=== PATIENT | female | born 1995 | race Caucasian/White ===

== ENCOUNTER 2023-04-14 10:25 | Outpatient (AMB) | payer OTHER, SELFPAY ==
--- NOTE | 2023-04-14 11:46 | AM.OFFWIN_ITS ---
Intake Vital Signs 04/14/23 11:49 Height 5 ft Weight 200 lb BMI 39.1 BP 110/66 Blood Pressure Location Lt brachial Position Sitting Pulse 86 Pulse Source Pulse Oximeter Temp 97.5 F Temp Source Temporal Artery Scan Pulse Oximetry (%) 98 Oxygen Delivery Method Room Air Intake Visit Reasons: [employer] cough hurting chest nausea Intake Note: pt is here today for cough hurting chest nausea started yesterday Patient Tobacco Use Status: Never used Tobacco Allergies No Known Allergies Allergy (Verified 04/14/23 11:47) Do you need a note to return to daycare/school/sports/work: Yes HPI HPI Comments History of Present Illness Details 27 y/o female patient who presents to [facility] with c/o Cough since yesterday. PFSH Social History Patient Tobacco Use Status: Never used Tobacco Review of Systems Const All systems reviewed & are unremarkable except as noted in HPI and below Physical Exam Vital Signs: Last Vital Signs Temp 97.5 F 04/14/23 11:49 Pulse 86 04/14/23 11:49 BP 110/66 04/14/23 11:49 Pulse Ox 98 04/14/23 11:49 Oxygen Delivery Method Room Air 04/14/23 11:49 BMI result Body Mass Index 39.1 Const General: comfortable and no acute distress Nutritional Appearance: obese Orientation/consciousness: patient oriented x3 HEENT Head: Yes normocephalic Ears: external ears normal and TM's normal bilaterally General nose exam: Normal nasal mucous membranes and turbinates present Face and sinus: Yes sinuses nontender Mouth: moist mucous membranes Throat: Yes posterior oropharynx normal Resp Effort & Inspection: normal respiratory effort, able to speak in complete sentences and Actively coughing Auscultation: clear to auscultation bilaterally, no crackles, no rales, no rhonchi and no wheezes Cardio Rate: regular rate Rhythm: regular rhythm Neuro General: patient oriented x3 Assessment & Plan Assessment & Plan (1) Cough in adult: Code(s): R05.9 - Cough, unspecified Plan: - Acetaminophen for pain relief - OTC remedies Medications: New zyfdrrwrtpdtn-GT-twubqhgpvct 5-10-100 mg/5 mL (Adult Robitussin Peak Cold M-S) 10 mL PO Q4H PRN 237 mL 0RF cold symptoms R05.9 - Cough, unspecified benzonatate 100 mg PO TID 30 caps 0RF R05.9 - Cough, unspecified Coding Level of Care Code Est Pt Level 3 (57407) Diagnoses Cough in adult R05.9 Time Spent (min) 15
[2023-04-14 11:49] VITALS: BP 110/66; PULSE 86; TEMP 36.4; O2SAT 98; BMI 39.1
== END 2023-04-14 16:20 | disposition home or self-care (01) ==
PROVIDERS: Visit Provider Nurse Practitioner Family
DX: R05.9 Cough, unspecified (principal)
CPT/HCPCS: 99213

== ENCOUNTER 2023-11-14 11:48 | Outpatient (AMB) | payer OTHER, SELFPAY ==
--- NOTE | 2023-11-14 11:52 | AM.OFFWIN_ITS ---
Intake Vital Signs 11/14/23 11:56 Height 5 ft Weight 200 lb BMI 39.1 BP 108/70 Blood Pressure Location Rt brachial Position Sitting Pulse 83 Pulse Source Pulse Oximeter Temp 98.2 F Temp Source Oral Pulse Oximetry (%) 98 Oxygen Delivery Method Room Air Intake Visit Reasons: EP headache with nausea, sinus pressure Intake Note: Patient here for sinus pressure, headaches and nausea due to headaches that has been present for about 2 days. Patient Tobacco Use Status: Never used Tobacco Allergies No Known Allergies Allergy (Verified 11/14/23 11:56) Do you need a note to return to daycare/school/sports/work: Yes HPI HPI Comments History of Present Illness Details Patient is a 28-year-old female complaining of 2 days of headaches, sinus pressure, stuffy nose, ear blockage and a little bit of nausea which she attributes to the headaches. She states she gets sinus infections quite frequently and she is usually given antibiotics. She denies any cough, fevers, shortness of breath, vomiting or diarrhea. She says she took some ibuprofen which does not seem to be helping. She states she does take an allergy pill in the springtime and then usually in the fall. She states she has been using a Vicks nasal spray which seems to help for a little while but then stops working REPLACED BY [facility] Social History Patient Tobacco Use Status: Never used Tobacco Review of Systems Const All systems reviewed & are unremarkable except as noted in HPI and below Physical Exam Vital Signs: Last Vital Signs Temp 98.2 F 11/14/23 11:56 Pulse 83 11/14/23 11:56 BP 108/70 11/14/23 11:56 Pulse Ox 98 11/14/23 11:56 Oxygen Delivery Method Room Air 11/14/23 11:56 BMI result Body Mass Index 39.1 Const General: cooperative, healthy appearing, comfortable and no acute distress Orientation/consciousness: patient oriented x3 Limitations: no limitations HEENT Head: Yes normal to inspection Ears: hearing grossly normal bilaterally, external ears normal and TM's normal bilaterally General nose exam: Normal external nose present, Normal nares present and No nasal discharge present Face and sinus: Yes normal facial exam and Yes sinuses nontender Mouth: Normal oral and palatal mucosa present and moist mucous membranes Throat: Yes tonsils normal, Yes uvula midline and Yes posterior oropharynx abnormal (Erythema) Eyes General: appearance normal, both eyes and all related structures Neck Neck: Yes normal visual inspection Resp Effort & Inspection: normal respiratory effort, able to speak in complete sentences, no respiratory distress, not tachypneic, no tripod positioning and no use of accessory muscles Skin General skin exam: no rashes or lesions noted Neuro General: patient oriented x3 Extrem General: Yes normal to inspection and Yes no clubbing, cyanosis or edema Assessment & Plan Assessment & Plan (1) Sinusitis, acute ethmoidal: Code(s): J01.20 - Acute ethmoidal sinusitis, unspecified Qualifiers: Recurrence: non-recurrent Qualified Code(s): J01.20 - Acute ethmoidal sinusitis, unspecified Plan: Vital signs are stable, patient is well-appearing. Educated patient that sinus infections are generally viral in an antibiotic is not indicated. Did recommend she start using a Neti pot with distilled water, and and continuing to use nasal spray and educated her on how to use the nasal spray properly. We will send a steroid to the pharmacy for additional symptomatic relief. Plan See above Medications: New prednisone 20 mg PO DAILY 5 tabs 0RF Coding Level of Care Code New Pt Level 3 (40523) Diagnoses Acute non-recurrent ethmoidal sinusitis J01.20 Recurrence: non-recurrent
[2023-11-14 11:56] VITALS: BP 108/70; PULSE 83; TEMP 36.8; O2SAT 98; BMI 39.1
== END 2023-11-14 12:17 | disposition home or self-care (01) ==
PROVIDERS: Visit Provider Physician Assistant
DX: J01.20 Acute ethmoidal sinusitis, unspecified (principal)

== ENCOUNTER 2023-12-06 08:18 | Outpatient (REF) | payer OTHER, SELFPAY ==
[2023-12-06 10:08] LABS: MANUAL DIFF FLAG NO
[2023-12-06 10:15] LABS: Basophils Percent Auto 0.4 % (0-2); Eosinophils Absolute Auto 0.2 X10*3/uL (0.0-0.4); Eosinophils Percent Auto 1.8 % (0-4); Hematocrit 38.8 % (37.0-47.0); Hemoglobin 13.4 g/dl (12.0-16.0); Imm Gran Abs Auto 0.04 X10*3/uL (0.00-0.03); Imm Gran Pct Auto 0.5 % (0.0-0.4); Lymphocytes Absolute Auto 2.7 X10*3/uL (1.2-4.9); Lymphocytes Percent Auto 32.7 % (20-40); Mean Corpuscular HGB Conc 34.5 g/dl (31.0-35.0); Mean Corpuscular Hemoglobin 30.9 pg (27.0-33.0); Mean Corpuscular Volume 89.4 fL (80.0-98.0); Mean Platelet Volume 10.8 fL (9.4-12.3); Monocytes Absolute Auto 0.5 X10*3/uL (0.1-1.2); Monocytes Percent Auto 6.2 % (2-11); Neutrophils Absolute Auto 4.9 x10*3/uL (2.0-8.3); Neutrophils Percent Auto 58.4 % (45-73); Platelet Count 313 X10*3/uL (160-400); Red Blood Count 4.34 X10*6/uL (4.20-5.50); Red Cell Distribution Width 12.7 % (11.0-16.0); White Blood Count 8.3 X10*3/uL (4.8-10.8)
[2023-12-06 10:37] LABS: Estimated Average Glucose 100 mg/dL; Hemoglobin A1C 96.4628 umol/L; Hemoglobin A1c % 5.1 % (<6.0); Total Hemoglobin (HGBA1C) 2975.5998 umol/L
[2023-12-06 12:09] LABS: Alanine Aminotransferase 20 U/L (0-31); Albumin Level 4.3 g/dL (3.5-5.0); Alkaline Phosphatase 55 U/L (39-117); Anion Gap 12 (12-20); Aspartate Amino Transferase 23 U/L (5-31); Bilirubin Total 0.5 mg/dL (0.0-1.0); Blood Urea Nitrogen 15 mg/dL (9-16); Calcium 9.8 mg/dL (8.4-10.2); Carbon Dioxide 24 mmol/L (22-29); Chloride 108 mmol/L (96-108); Cholesterol 196 mg/dL (<200); Estimated Glomerular Filt Rate > 60; Glucose Random 92 mg/dL (60-115); HDL Cholesterol 47 mg/dL (>40); LDL Cholesterol Calculated 124 mg/dL (<100); Potassium 4.1 mmol/L (3.3-5.1); Sodium 140 mmol/L (135-145); Total Protein 7.3 g/dL (6.5-8.0); Triglycerides 128 mg/dL (<150)
[2023-12-06 12:10] LABS: HIV AB/AG Nonreactive (Nonreactive); HIV Num 1 0.04 S/CO (0.00-0.99); ~HepC Num1 0.08 S/CO (0.00-0.79); ~Hepatitis C Antibody Nonreactive (Nonreactive)
== END 2023-12-06 08:19 | disposition home or self-care (01) ==
LOC: HO.HMGCLDS 08:18
PROVIDERS: PCP Internal Medicine; Visit Provider Internal Medicine
DX: E66.812 Obesity, class 2 (principal); E66.09 Other obesity due to excess calories; Z68.39 Body mass index [BMI] 39.0-39.9, adult; Z13.1 Encounter for screening for diabetes mellitus
CPT/HCPCS: 36415; 80053; 80061; 83036; 84443; 85025; 86803; 87389

== ENCOUNTER 2024-03-21 13:46 | Outpatient (REF) | payer OTHER, SELFPAY ==
--- OUTSIDE RECORDS SUMMARY | 2024-03-21 14:12 | XMS_ITS | Clinical Summary ---
Author Organization [employer] Address [address] [place] [address] Care Team Providers Care Accounting Instructor Name Role Phone León Marie MD Primary Care Prov ider Allergies Active Allergy Reactions Criticality Noted Date Comments Apple Juice 12/05/2023 Octacosanol 06/28/2023 Medications amoxicillin (Amoxil) 875 MG tablet Take 875 mg by mouth 2 times daily. Active Sodium Fluoride (PreviDent 5000 Booster Plus) 1.1 % paste Please use pea size to brush your teeth twice daily. Spit after brushing. Do not rinse. 112 g 1 4 Active EPINEPHrine (Epipen) 0.3 MG/0.3ML injection syringe Inject 0.3 mL (0.3 mg) as directed 1 (one) time if needed for anaphylaxis for up to 1 dose. Inject into upper leg. Call 911 after use. 1 each 4 Active Active Problems Problem Noted Date Diagnosed Date Encounter for medical examination to establish c are 12/05/2023 Assessment & Plan (12/05/2023 6:05 PM EDT): Hospitalization:- Er visit in the past year: sinus infection/covid Pmhx:- PSHx:- All:apple Meds Zyrtec OTC Menarche 11yr LMP:11/03/2023 No hx of Sexually active with 1 male partner, not on contraceptives, not interested Due for a pap smear Dyshidrotic eczema 12/05/2023 Assessment & Plan (12/05/2023 6:06 PM EDT): Will refer to dermatology for evaluation Screening for cervical cancer 12/05/2023 Assessment & Plan (12/05/2023 6:07 PM EDT): Will refer for a pap smear Encounters Date Type Department Care Team Description 03/21/[address] [facility] [address] [place], [place] [phone] León Marie MD Nurse Triage from Last 3 Months Immunizations Name Administration Dates Next Due Tdap 12/05/2023 Family History Medical History Relation Name Comments Diabetes Father Hypertension Father Hypertension Maternal Grandfather Diabetes Maternal Grandmother Hypertension Maternal Grandmother Hypertension Mother Cancer Neg Hx Relation Name Status Comments Father Maternal Grandfather Maternal Grandmother Mother Social History Tobacco Use Types Packs/Day Years Used Date Smoking Tobacco: Never Passive Smoke Exposure: Never Smokeless Tobacco: Never Tobacco Cessation:Counseling Given: Not Answered Alcohol Use Standard Drinks/Week Comments Yes 3 (1 standard drink = 0.6 oz pure alcohol) mixed drinks once a months socially Alcohol Answer Date Recorded Frequency of Alcohol Consumption Not on file 12/05/2023 Average Number of Drinks Not on file 024 Frequency of Binge Drinking Not on file 11/14 Score 0 12/05/2023 Depression Answer Date Recorded Patient Health Questionnaire-9 Score 0 12/05/2023 Patient Health Questionnaire-9 Score 0 12/05/2023 Last PHQ-9: Questionnaire Data Not on file 1 Depression Answer Date Recorded Patient Health Questionnaire-2 Score 0 12/05/2023 Comments Unknown Sex and Gender Information Value Date Recorded Sex Assigned at Female 07/06/2022 4:11 PM EDT Legal Sex Female 4:09 PM EDT Gender Identity Female 07/06/2022 4:11 PM EDT Sexual Orientation Straight 07/06/2022 4: 11 PM EDT Last Filed Vital Signs Vital Sign Reading Time Taken Comments Blood Pressure 134/82 12/05/2023 9:58 AM EDT Pulse 88 12/05/2023 9:58 AM EDT Temperature 36.6 ??C (97.8 ??F) 12/05/2023 9:58 AM ED T Respiratory Rate 20 12/05/2023 9:58 AM EDT Oxygen Saturation - - Inhaled Oxygen Concentration - - Weight 92.1 kg (203 lb) 12/05/2023 9:58 AM EDT Height 152.4 cm (5') 12/05/2023 9:58 AM EDT Body Mass Index 39.65 12/05/2023 9:58 AM EDT Plan of Treatment Health Maintenance Due Date Last Done Comments SDOH Screening 1994 Family Planning (PISQ) 2009 Hepatitis B Vaccines (1 of 3 - 19+ 3-dose series) 2013 Pap Smear 09/13/2015 Dental Oral Exam 06/22/2023 12/21/2022 COVID-19 Vaccine (1 - 2023-2 5 season) 2023 Influenza Vaccine (#1) 2023 Dental Prophylaxis 12/30/2023 06/28/2023, 07/28/2022 Dental X-Ray: Bitewings 06/28/2024 06/28/19 24, 12/21/2022, 07/14/2022 Alcohol/Substance Use Screening 12/04/2024 12/05/2023 Depression Screening 12/04/2024 12/05/2023, 12/05/2023 Tobacco Screening 12/04/2024 12/05/2023 Dental X-Ray: Full Mouth 07/15/2025 023, 07/14/2022 Lipid Panel 12/05/2028 12/06/2023 DTaP/Tdap/Td Vaccines (2 - T d or Tdap) 12/04/2033 12/05/2023 Zoster Vaccines (1 of 2) 2044 RSV Patients and Patients Aged 60 years or older (1 - 1-dose 75+ series) 2069 HIV Screening Completed 12/06/2023 Hepatitis C Screening Completed 12/06/2023 HIB Vaccines Aged Out No longer eligi ble based on patient's age to complete this topic HPV Vaccines Aged Out No longer eligi ble based on patient's age to complete this topic Hepatitis A Vaccines Aged Out No long er eligible based on patient's age to complete this topic IPV Vaccines Aged Out No longer eligi ble based on patient's age to complete this topic Meningococcal Vaccine Aged Out No john kim eligible based on patient's age to complete this topic Pneumococcal Vaccine: Pediatrics (0 to 5 Years) and At-Risk Patients (6 to 49) Years) Aged Out No longer eligible b ased on patient's age to complete this topic RSV under 20 months Aged Out No longe r eligible based on patient's age to complete this topic Rotavirus Vaccines Aged Out No longer eligible based on patient's age to complete this topic Procedures Procedure Name Priority Date/Time Associated Diagnosis Comments HEPATITIS C AB W/REFL TO HCV RNA, QN, PCR Routine 12/06/2023 8:24 AM EDT Class 2 obesity due to excess calories without serious comorbidity with body mass index (BMI) of 39.0 to 39.9 in adult HIV 1/2 ANTIGEN/ANTIBODY, FOURTH GENERATION W/RFL Routine 12/06/2023 8:24 AM EDT Class 2 obesity due to excess calories without serious comorbidity with body mass index (BMI) of 39.0 to 39.9 in adult LIPID PANEL, STANDARD Routine 12/06/2023 8:24 AM EDT Class 2 obesity due to excess calories without serious comorbidity with body mass index (BMI) of 39.0 to 39.9 in adult Full PROPHYLAXIS - ADULT Routine 06/28/2023 8:00 AM EDT BITEWINGS - 4 RADIOGRAPHIC IMAGES Routine 06/28/2023 8:00 AM EDT PERIODIC ORAL EVALUATION - ESTABLISHED PATIENT Routine 12/21/2022 1:30 PM EST DIAGNOSTIC - DIAGNOSTIC IMAGING - INTRAORAL - COMPREHENSIVE SERIES OF RADIOGRAPHIC IMAGES Routine 07/14/2022 3:00 PM EDT from Last 3 Months or Most Recently Relevant to Health Maintenance Results * Hepatitis C Antibody with Reflex to HCV, RNA, Quantitative, Real-Time PCR (12/06/2023 8:24 AM EDT) Hepatitis C Antibody Nonreactive Nonreactive [facility] Comment:Antibodies to HCV no t detected; does not exclude early acuteHCV infection. Blood Venous blood specimen / Unknown 12/06/2023 8:24 AM EDT 12/06/2023 10:07 AM EDT us León Sarmiento MD LAB BLOOD ORDERABL ES Final Result [facility] [address] [place] [address] [place] [phone] * HIV-1/2 Antigen and Antibodies, Fourth Generation, with Reflexes (12/06/2023 8:24 AM EDT) HIV AB/AG Nonreactive Nonreactive [facility] Comment:HIV-1 p24 Ag and/or HIV-1/HIV-2 Ab not detected.A test result that is nonreactive does not exclude thepossibility of exposure to or infection with HIV-1 and/orHIV-2. Nonreactive results in this assay for individualswith prior exposure to HIV-1 and/or HIV-2 may be due toantigen and antibody levels that are below the limit ofdetection of this assay.The [employer] HIV Ag/Ab Combo assay result andsupplemental assay results should be interpreted inconjunction with the patient's clinical presentation,history and other laboratory results. If the results areinconsistent with clinical evidence, additional testing issuggested to confirm the result. Blood Venous blood specimen / Unknown 12/06/2023 8:24 AM EDT 12/06/2023 10:07 AM EDT us León Sarmiento MD LAB BLOOD ORDERABL ES Final Result [facility] [address] [place] [phone] * (ABNORMAL) Lipid Panel, Standard (12/06/2023 8:24 AM EDT) Triglycerides 128 <150 mg/dL [facility] Comment:Desirable Triglyceri de: less than 150 mg/dLBorderline High Triglyceride 150-199 mg/dLHigh Triglyceride: 200-499 mg/dLVery High Triglyceride: greater than or equal to 5OO mg/dL Cholesterol 196 <200 mg/dL [facility] Comment:Desirable Cholestero l: less than 200 mg/dLBorderline High Cholesterol: 200-239 mg/dLHigh Cholesterol: greater than 239 mg/dL LDL Cholesterol Calculated 124(H) <100 mg/dL [facility] Comment:Desirable LDL: less than 100 mg/dLNear Optimal/Above Optimal LDL: 110- 129 mg/dLBorderline High LDL: 130-159 mg/dLHigh LDL: 160-189 mg/dLVery High LDL: greater than or equal to 190 mg/dL HDL Cholesterol 47 >40 mg/dL [facility] Comment:Desirable HDL: great er than 40 mg/dL Note: This HDL assay may give artificially low results in patients with liver disease. Blood Venous blood specimen / Unknown 12/06/2023 8:24 AM EDT 12/06/2023 10:07 AM EDT León Sarmiento MD LAB BLOOD ORDERABL ES Final Result Performing Organization Address City/State/[facility] Co de Phone Number [facility] [address] [place] [phone] from Last 3 Months or Most Recently Relevant to Health Maintenance Insurance [facility] MEDICAID STAND ADULT [facility] CHOICE [place] [id number] [facility] STAND AD[place] [facility] [place] [facility] [facility] Care Teams Accounting Instructor Relationship Specialty Start Date End Date León Marie MD [address] [place] [address] [place] [id number] PCP - General Internal Medicine 12/05/23
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
--- OUTSIDE RECORDS SUMMARY | 2024-03-21 14:12 | XMS_ITS | Encounter Summary ---
Author Organization [employer] Address [address] [place] [address] Care Team Providers Care Senior Cost Accountant Name Role Phone León Marie MD Primary Care Prov ider Reason for Visit * Reason Onset Date Comments Nurse Triage 03/21/2024 Encounter Details Date Type Department Care Team (Late st Contact Info) Description 03/21/2024 Telephone [facility] [address] [place] [address] León Marie MD [address] [place], [place] [id number] Nurse Triage Social History Tobacco Use Types Packs/Day Years Used Date Smoking Tobacco: Never Passive Smoke Exposure: Never Smokeless Tobacco: Never Alcohol Use Standard Drinks/Week Comments Yes 3 [...] Orientation Straight 07/06/2022 4: 11 PM EDT documented as of this encounter Miscellaneous Notes * Telephone Encounter - Sylvia Ayers RN - 03/21/2024 1:24 PM EST Second attempt Call returned to [facility] to triage below. Reports having cough and associatedCP. Sx onset last night. Pt reports cough is productive with sputum. Pt endorses having runny nose and fatigue. Denies any ST, VARGAS or ear pain. No homekit for COVID-19. Pt alert, speaking in clear full sentences. Pt advised of disposition, agrees to seek [facility] in [place] as no [facility]. Protocol Used: COVID-19 - Diagnosed or Suspected (Adult) Protocol-Based Disposition: Go to ED/UCC Now (or to Office with PCP Approval) Video visit offer not recorded Positive Triage Question: * Chest pain or pressure (Exception: Mild central chest pain, present only when coughing.) * All higher-acuity triage questions were negative Care Advice Discussed: * Reassurance and Education - Suspected COVID-19 and Testing Needed * Cough Medicines * Humidifier * Coughing Spells * Pain and Fever Medicines * Reasons To Call Back - Fever over 103 F (39.4 C) - Chest pain or difficulty breathing occurs - You become worse * Telephone Encounter - Sylvia Ayers RN - 03/21/2024 1:14 PM EST Call returned to [facility] for triage below. No answer LVM to return call to [facility] triage line [phone]. Insurance verified as active per [employer] [facility] Eligibility in [facility]. * Telephone Encounter - Alex Joaquin - 03/21/2024 1:09 PM EST Symptoms: Chest Pain - Adult, Cough Outcome: Transfer to a nurse or provider NOW! Reason: Hard to wake up Please contact pt at [phone]. documented in this encounter Plan of Treatment Not on file documented as of this encounter Visit Diagnoses Not on filedocumented in this encounter Additional Health Concerns Assessment Noted Time PHQ-9 Depression Total Score: 0 12/05/19 9:59 AM EDT documented as of this encounter Care Teams Senior Cost Accountant Relationship Specialty Start Date End Date León Marie MD [address] [place] [address] PCP - General Internal Medicine 12/05/23 documented as of this encounter
--- OUTSIDE RECORDS SUMMARY | 2024-03-21 14:12 | XMS_ITS | Encounter Summary ---
Author Organization [employer] Address [address] [place] [address] [address] [place] [address] Care Team Providers Care Host And Hostess Name Role Phone León Marie MD Primary Care Prov ider Reason for Visit * Reason Onset Date Comments toothpaste script 09/21/2022 Encounter Details Date Type Department Care Team ([facility] st Contact Info) Description 09/21/2022 Telephone [facility] [address] [facility] [place] [address] Yeni Paulino BDMello toothpaste script Social History Tobacco Use Types Packs/Day Years Used Date Smoking Tobacco: Never Passive Smoke Exposure: Never Smokeless Tobacco: Never Alcohol Use Standard Drinks/Week Comments Yes 3 (1 standard drink = 0.6 oz pur e alcohol) Comments Unknown Sex and Gender Information Value Date Recorded Sex Assigned at Female 07/06/2022 4:11 PM EDT Legal Sex Female 4:09 PM EDT Gender Identity Female 07/06/2022 4:11 PM EDT Sexual Orientation Straight 07/06/2022 4: 11 PM EDT documented as of this encounter Miscellaneous Notes * Telephone Encounter - Geneva Radford - 09/21/2022 3:35 PM EDT Patient called back saying she is waiting for the script for toothpaste to be sent to the pharmacy documented in this encounter Plan of Treatment Not on file documented as of this encounter Visit Diagnoses Not on filedocumented in this encounter Care Teams Host And Hostess Relationship Specialty Start Date End Date León Marie MD [address] [place] [address] PCP - General Internal Medicine 12/05/23 documented as of this encounter
--- OUTSIDE RECORDS SUMMARY | 2024-03-21 14:12 | XMS_ITS | Encounter Summary ---
Author Organization [employer] Address [address] [place] [address] 7t [place] [address] Care Team Providers Care Machine Iii Coremaker Name Role Phone León Marie MD Primary Care Prov ider Reason for Visit * Reason Onset Date Comments script not sent 07/21/2022 Encounter Details Date Type Department Care Team ([facility] st Contact Info) Description 07/21/2022 Telephone [facility] [address] [facility] [address] Yeni Paulino BDS script not sent Social History Tobacco Use Types Packs/Day Years Used Date Smoking Tobacco: Never Assessed Comments Unknown Sex and Gender Information Value Date Recorded Sex Assigned at Female 07/06/2022 4:11 PM EDT Legal Sex Female 4:09 PM EDT Gender Identity Female 07/06/2022 4:11 PM EDT Sexual Orientation Straight 07/06/2022 4: 11 PM EDT COVID-19 Exposure Response Date Recorded In the last 10 days, have yo u been in contact with someone who was confirmed or suspected to have Coronavirus/COVID-19? No / Unsure 07/14/2022 2:57 PM EDT documented as of this encounter Miscellaneous Notes * Telephone Encounter - Geneva Radford - 07/21/2022 4:09 PM EDT Patient called in to report that script from visit on 07/14 was not sent to pharmacy. Can script besent to pharmacy. DR documented in this encounter Plan of Treatment Not on file documented as of this encounter Visit Diagnoses Not on filedocumented in this encounter Care Teams Machine Iii Coremaker Relationship Specialty Start Date End Date León Marie MD [address] [place] [id number] PCP - General Internal Medicine 12/05/23 documented as of this encounter
[2024-03-21 16:55] LABS: Influenza A PCR POSITIVE (Negative); Influenza B PCR NEGATIVE (Negative); Resp Syncy Virus RNA Qual PCR NEGATIVE (Negative); SARS COV2 PCR INHOUSE NEGATIVE (Negative)
== END 2024-03-21 13:47 | disposition home or self-care (01) ==
LOC: HO.LAB 13:46
PROVIDERS: PCP Internal Medicine; Visit Provider Nurse Practitioner Family
DX: J06.9 Acute upper respiratory infection, unspecified (principal)
CPT/HCPCS: 0241U

== ENCOUNTER 2024-10-26 09:32 | Outpatient (AMB) | payer OTHER, SELFPAY ==
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
--- OUTSIDE RECORDS SUMMARY | 2024-10-26 09:35 | XMS_ITS | Encounter Summary ---
Author Organization [employer] Address [address] [facility] [address] [place] [address] Care Team Providers Care Construction Laborer Name Role Phone León Marie MD Primary Care Prov ider Reason for Visit * Reason Onset Date Comments Nurse Triage 03/25/2024 Encounter Details Date Type Department Care Team (Late st Contact Info) Description 03/25/2024 Telephone [facility] MEDICINE [address] [place] [address] León Marie MD [address] [place], [place] [phone] Nurse Triage Social History Tobacco Use Types Packs/Day Years Used Date Smoking Tobacco: Never Passive Smoke Exposure: Never Smokeless Tobacco: Never Alcohol Use Standard Drinks/Week Comments Yes 3 (1 standard drink = 0.6 oz pure alcohol) mixed drinks once a months socially Depression Answer Date Recorded Patient Health Questionnaire-9 [...] encounter Miscellaneous Notes * Telephone Encounter - Maday Sanches RN - 03/25/2024 9:38 AM EST Triage call Pt reports headache, bilateral earache and congestion, nasal congestion, cough. Pt was seen in Urgent Care 03/21/24 (report is on the chart) and dx with Flu A, tamiflu was started then. Pt reports pain over facial sinuses, ears are very clogged and headache has continued to become worse. Pt reports nasal drainage from clear to yellow-green. Pt is taking tylenol 1000mg q 6hrs without relief. Pt reports warm compress to facial area helps relieve discomfort. Pt is encouraged to increase liquids , marco a warm decaf tea, broth to 6-8 glasses daily and Pt agrees. ASK apt with Dr. Pederson today at 1130am. Pt agrees with disposition and is needing an excuse for absence from work. Insurance is verified as active prior to booking. Protocol Used: Sinus Pain or Congestion (Adult) Protocol-Based Disposition: See in Office or Video Visit Today or Tomorrow Video visit not offered Positive Triage Questions: * Lots of coughing * Patient wants to be seen * All higher-acuity triage questions were negative Care Advice Discussed: * Reassurance and Education - Colds and Sinus Congestion * Hydration * Reasons To Call Back - Severe pain lasts over 2 hours after pain medicine - Sinus pain lasts over 1 day after using nasal washes - Sinus congestion (fullness) lasts over 10 days - Fever lasts over 3 days - You become worse * Telephone Encounter - Shama Roque - 03/25/2024 9:04 AM EST Symptoms: Headache, Earache Outcome: Schedule an urgent appointment (within 1 hour) or talk to a nurse or provider soon Reason: Severe pain now The caller accepted this outcome. documented in this encounter Plan of Treatment Not on file documented as of this encounter Visit Diagnoses Not on filedocumented in this encounter Additional Health Concerns Assessment Noted Time PHQ-9 Depression Total Score: 0 12/05/19 9:59 AM EDT documented as of this encounter Care Teams Construction Laborer Relationship Specialty Start Date End Date León Marie MD [address] [place] [address] PCP - General Internal Medicine 12/05/23 documented as of this encounter
--- OUTSIDE RECORDS SUMMARY | 2024-10-26 09:35 | XMS_ITS | Encounter Summary ---
Author Organization [employer] Address [address] [place] [address] 7 [place] [address] Care Team Providers Care Chemical Plant Operator Supervisor Name Role Phone León Marie MD Primary Care Prov ider Reason for Visit * Reason Onset Date Comments toothpaste script 09/21/2022 Encounter Details Date Type Department Care Team ([facility] st Contact Info) Description 09/21/2022 Telephone C [facility] ADULT DENTAL [address] [facility] [place] [address] Yeni Paulino BDMello toothpaste script Social History [...] on filedocumented in this encounter Care Teams Chemical Plant Operator Supervisor Relationship Specialty Start Date End Date León Marie MD [address] [place] [address] PCP - General Internal Medicine 12/05/23 documented as of this encounter
--- OUTSIDE RECORDS SUMMARY | 2024-10-26 09:35 | XMS_ITS | Encounter Summary ---
Author Organization [employer] Address [address] [facility] [address] 7[address] [place] [address] Care Team Providers Care Director Workforce Management Name Role Phone León Marie MD Primary Care Prov ider Reason for Visit * Reason Onset Date Comments Nurse Triage 10/25/2024 Encounter Details Date Type Department Care Team (Late st Contact Info) Description 10/25/2024 Telephone [facility] MEDICINE [address] [place] [address] León Marie MD [address] [place], [place] [phone] Nurse Triage Social History Tobacco Use Types [...] Telephone Encounter - Sylvia Ayers RN - 10/25/2024 9:37 AM EDT Call returned to Addie Campo to triage below at [phone]. Endorses having right sided VARGAS andbehind hear x Monday. No cough, congestion, runny nose or ST. Denies any fever. Pt has used sudafedand ibuprofen. No new meds. Pt denies any hx of migraines. Mild nausea. Denies any sensitivity to light or sound. Pt advised of disposition, agrees to seek [facility] for exam as no sick on site availability on teams at time of call. Reviewed [facility] operating hours and that wait times vary. Reviewed home care advise, ER precautions and reasons to call back. Protocol Used: Headache (Adult) Protocol-Based Disposition: Callback or Video Visit by PCP within 1 Hour Positive Triage Question: * Severe headache and not relieved by pain meds * All higher-acuity triage questions were negative Care Advice Discussed: * Reassurance and Education - Migraine Headache * Pain Medicines * Rest for Migraine Headache * Cold Pack for Headache * Reasons To Call Back - Severe headache lasts over 2 hours after pain medicine - You become worse * Telephone Encounter - Sylvia Ayers RN - 10/25/2024 9:03 AM EDT Call returned to Addie Campo at [phone] for triage below. No answer LVM to return call to [facility] triage line [phone]. m * Telephone Encounter - Nellie Jj - 10/25/2024 8:36 AM EDT Symptoms: Headache, Nausea But No Vomiting, Dizziness Outcome: Transfer to a nurse or provider NOW! Reason: Sudden worst headache of life now The caller accepted this outcome. Contact pt at [phone] documented in this encounter Plan of Treatment Not on file documented as of this encounter Visit Diagnoses Not on filedocumented in this encounter Additional Health Concerns Assessment Noted Time PHQ-9 Depression Total Score: 0 12/05/19 24 9:59 AM EDT documented as of this encounter Care Teams Director Workforce Management Relationship Specialty Start Date End Date PedersonLeón Carpenter MD [address] [place] [id number] PCP - General Internal Medicine 12/05/23 documented as of this encounter
--- OUTSIDE RECORDS SUMMARY | 2024-10-26 09:35 | XMS_ITS | Encounter Summary ---
Author Organization [employer] Address [address] [facility] 7t [place] [address] Care Team Providers Care Beauty Operator Apprentice Name Role Phone León Marie MD Primary Care Prov ider Reason for Visit * Reason Onset Date Comments Nurse Triage 06/05/2024 Encounter Details Date Type Department Care Team (Late st Contact Info) Description 06/05/2024 Telephone [facility] MEDICINE [address] [place] [address] León Marie MD [address] [place], [place] [phone] Nurse Triage Social History Tobacco Use Types [...] Telephone Encounter - Maday Sanches RN - 06/05/2024 9:26 AM EDT Triage call Pt reports sore throat, sinus sx and bilateral earaches since the weekend. Denies fever. Pt reports difficulty swallowing. 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 No apts available today in [facility] and Pt is offered to come to [facility] today but, declines. ASK apt in [facility] @ 900am. Pt agrees with disposition. Pt is advised to drink liquids especially warm liquids, soft foods, salt water gargle and Pt agrees. Insurance is verified as active prior to booking. Protocol Used: Sore Throat (Adult) Protocol-Based Disposition: Strep Test Only Visit Today or Tomorrow Video visit not offered Positive Triage Question: * Strep exposure within last 10 days * All higher-acuity triage questions were negative Care Advice Discussed: * Reassurance and Education - Sore Throat * Sore Throat * Soft Diet * Drink Plenty of Liquids * Reasons To Call Back - Sore throat is the main symptom and it lasts longer than 48 hours - Sore throat is mild but lasts longer than 4 days - Fever lasts longer than 3 days - You become worse * Telephone Encounter - Cara [place] - 06/05/2024 8:51 AM EDT Symptoms: Sore Throat, Sinus Symptoms Outcome: Schedule an appointment to be seen within 24 hours Reason: Caller denied all higher acuity questions The caller accepted this outcome. [phone] documented in this encounter Plan of Treatment Not on file documented as of this encounter Visit Diagnoses Not on filedocumented in this encounter Additional Health Concerns Assessment Noted Time PHQ-9 Depression Total Score: 0 12/05/19 9:59 AM EDT documented as of this encounter Care Teams Beauty Operator Apprentice Relationship Specialty Start Date End Date León Marie MD [address] [place] [id number] PCP - General Internal Medicine 12/05/23 documented as of this encounter
--- OUTSIDE RECORDS SUMMARY | 2024-10-26 09:35 | XMS_ITS | Encounter Summary ---
Author Organization [employer] Address [address] [place] [address] 7t [place] [address] Care Team Providers Care Spirits Model Name Role Phone León Marie MD Primary Care Prov ider Reason for Visit * Reason Onset Date Comments script not sent 07/21/2022 Encounter Details Date Type Department Care Team ([facility] st Contact Info) Description 07/21/2022 Telephone [facility] [address] [facility] [place] [address] Yeni Paulino BDS script not sent Social [...] on filedocumented in this encounter Care Teams Spirits Model Relationship Specialty Start Date End Date León Marie MD [address] [place] [id number] PCP - General Internal Medicine 12/05/23 documented as of this encounter
--- OUTSIDE RECORDS SUMMARY | 2024-10-26 09:35 | XMS_ITS | Clinical Summary ---
Author Organization [employer] Address [address] [facility] 7t [place] [address] Care Team Providers Care Senior Net Software Developer Name Role Phone León Marie MD Primary [...] 911 after use. 1 each 4 Active azelastine (Astelin) 0.1 % nasal spray Administer 1 spray into each nostril 2 times daily. Use in each nostril as directed 30 mL 12 5 06/07/19 26 Active loratadine (Claritin) 10 MG tablet Take 1 tablet (10 mg) by mouth Once per day. 30 tablet 11 5 06/07/19 26 Active Active Problems Problem Noted Date Diagnosed [...] Encounters Date Type Department Care Team Description 10/25/2024 Telephone [facility] [address] [place] [address] León Marie MD Nurse Triage from Last 3 Months Immunizations Immunization Administration Dates Next Due Tdap 12/05/2023 Family [...] Sign Reading Time Taken Comments Blood Pressure 120/72 06/06/2024 8:58 AM EDT Pulse 82 06/06/2024 8:58 AM EDT Temperature 37 C (98.6 F) 06/06/2024 8:58 AM EDT Respiratory Rate 20 06/06/2024 8:58 AM EDT Oxygen Saturation 98% 06/06/2024 8:58 AM EDT Inhaled Oxygen Concentration - - Weight 91.4 kg (201 lb 6.4 oz) 06/06/2024 8:58 A M EDT Height 154.9 cm (5' 1 ) 06/06/2024 8:58 AM EDT Body Mass Index 38.05 06/06/2024 8:58 AM EDT Plan of Treatment Health Maintenance Due Date Last Done Comments SDOH Screening 1994 Disability Screening 1994 Family Planning (PISQ) 2009 HPV Vaccines (1 - 3-dose series) 2009 Hepatitis B Vaccines (1 of 3 - 19+ 3-dose series) 2013 Pap Smear 09/13/2015 Dental Oral Exam 06/22/2023 12/21/2022 Dental Prophylaxis 12/30/2023 06/28/2023, 07/28/2022 Dental X-Ray: Bitewings 06/28/2024 06/28/19 24, 12/21/2022, 07/14/2022 Cervical Cancer Screening 2024 HPV/Cotest 2024 COVID-19 Vaccine (1 - 2023-2 5 season) 2024 Influenza Vaccine (#1) 2024 Alcohol/Substance Use Screening 12/04/2024 12/05/2023 Depression Screening [...] patient's age to complete this topic Meningococcal B Vaccine Aged Out No l onger eligible based on patient's age to complete this topic Meningococcal Vaccine Aged Out No john kim eligible based on patient's age to complete this topic Pneumococcal Vaccine: Pediatrics (0 to 5 Years) and At-Risk Patients (6 to 49) Years Aged Out No longer eligible b ased [...] ESTABLISHED PATIENT Routine 12/21/2022 1:30 PM EST INTRAORAL - COMPLETE SERIES OF RADIOGRAPHIC IMAGES Routine 07/14/2022 3:00 PM EDT from Last 3 Months or Most Recently Relevant to Health Maintenance Results * Hepatitis C Antibody with Reflex to HCV, RNA, Quantitative, Real-Time PCR (12/06/2023 8:24 AM EDT) Hepatitis C Antibody Nonreactive Nonreactive [facility] Comment:Antibodies to HCV no t detected; does not exclude early acuteHCV infection. Blood Venous blood specimen / Unknown 12/06/2023 8:24 AM EDT 12/06/2023 10:07 AM EDT León Sarmiento MD LAB BLOOD ORDERABL ES Final Result Performing Organization Address [facility]/ZIP Co de Phone Number [facility] [address] [place] [address] [phone] * HIV-1/2 Antigen and Antibodies, Fourth Generation, with Reflexes (12/06/2023 8:24 AM EDT) HIV AB/AG Nonreactive Nonreactive [facility] Comment:HIV-1 p24 Ag and/or HIV-1/HIV-2 Ab not detected.A test result that is nonreactive does not exclude thepossibility of exposure to or infection with HIV-1 and/orHIV-2. Nonreactive results in this assay for individualswith prior exposure to HIV-1 and/or HIV-2 may be due toantigen and antibody levels that are below the limit ofdetection of this assay.The [employer] HIV Ag/Ab Combo assay result andsupplemental assay results should be interpreted inconjunction with the patient's clinical presentation,history and other laboratory results. If the results areinconsistent with clinical evidence, additional testing issuggested to confirm the result. Blood Venous blood specimen / Unknown 12/06/2023 8:24 AM EDT 12/06/2023 10:07 AM EDT León Sarmiento MD LAB BLOOD ORDERABL ES Final Result Performing Organization Address City/[facility]/ZIP Co de Phone Number [facility] [address] [place] [address] [phone] * (ABNORMAL) Lipid Panel, Standard (12/06/2023 8:24 AM EDT) Triglycerides 128 <150 mg/dL [facility] Comment:Desirable Triglyceri de: less than 150 mg/dLBorderline High Triglyceride 150-199 mg/dLHigh Triglyceride: 200-499 mg/dLVery High Triglyceride: greater than or equal to 5OO mg/dL Cholesterol 196 <200 mg/dL [facility] Comment:Desirable Cholestero l: less than 200 mg/dLBorderline High Cholesterol: 200-239 mg/dLHigh Cholesterol: greater than 239 mg/dL LDL Cholesterol Calculated 124(H) <100 mg/dL [facility] Comment:Desirable LDL: less than 100 mg/dLNear Optimal/Above Optimal LDL: 110- 129 mg/dLBorderline High LDL: 130-159 mg/dLHigh LDL: 160-189 mg/dLVery High LDL: greater than or equal to 190 mg/dL HDL Cholesterol 47 >40 mg/dL [facility] Comment:Desirable HDL: great er than 40 mg/dL Note: This HDL assay may give artificially low results in patients with liver disease. Blood Venous blood specimen / Unknown 12/06/2023 8:24 AM EDT 12/06/2023 10:07 AM EDT León Sarmiento MD LAB BLOOD ORDERABL ES Final Result [facility] [address] [place] [address] [phone] from Last 3 Months or Most Recently Relevant to Health [place] [id number] [facility] [place] [id number] D[facility]AL [facility] Care Teams Senior Net Software Developer Relationship Specialty Start Date End Date PedersonLeón Carpenter MD [address] [place] [address] [place] [address] PCP - General Internal Medicine 12/05/23
[2024-10-26 09:46] VITALS: BP 118/70; PULSE 88; RESP 15; TEMP 36.8; O2SAT 99; BMI 40.8
--- NOTE | 2024-10-26 09:46 | AM.OFFWIN_ITS ---
Intake Vital Signs 10/26/24 09:46 Height 5 ft Weight 209 lb BMI 40.8 BP 118/70 Blood Pressure Location Lt brachial Position Sitting Respiration 15 Pulse 88 Pulse Source Pulse Oximeter Temp 98.2 F Temp Source Oral Pulse Oximetry (%) 99 Oxygen Delivery Method Room Air Intake Visit Reasons: EP-pressure in back head and behind rt ear Intake Note: Pt is here today c/o pressure back of head and behind Rt ear x5days Patient Tobacco Use Status: Never used Tobacco Allergies No Known Allergies Allergy (Verified 10/26/24 09:47) HPI HPI Comments History of Present Illness Details This is a 29-year-old female with a past medical history of seasonal allergies currently maintained on loratadine and a nasal steroid presenting for evaluation of a headache that extends from her frontal region to behind her right ear that has been present since Monday. Patient has been taking ibuprofen without complete relief of her discomfort. She denies having any fevers, chills, visual changes, lightheadedness, ear pain, sore throat, cough or shortness of breath. [facility] Medical History (Updated 10/26/24 @ 10:16 by Jasmin Lang PA-C) Acute respiratory disease Social History Patient Tobacco Use Status: Never used Tobacco Review of Systems Const All systems reviewed & are unremarkable except as noted in HPI and below Denies body aches, Denies chills, Denies fatigue, Denies fever(s) and Reports headache(s) Eyes Reports no additional complaints and Denies itchy eyes ENT Reports no additional complaints, Reports as per HPI, Reports headache(s), Denies lip swelling, Denies throat swelling and Denies tongue swelling Card Reports no additional complaints Skin/Breast Reports system reviewed and no additional complaints, except as documented Neuro Reports no additional complaints, Denies confusion and Reports headache(s) Psych Denies confusion Endo Denies fatigue Aller/Immun Denies urticaria, Denies itchy eyes, Denies lip swelling, Denies seasonal rhinorrhea, Denies throat swelling and Denies tongue swelling Physical Exam Vital Signs: Last Vital Signs Temp 98.2 F 10/26/24 09:46 Pulse 88 10/26/24 09:46 Resp 15 10/26/24 09:46 BP 118/70 10/26/24 09:46 Pulse Ox 99 10/26/24 09:46 Oxygen Delivery Method Room Air 10/26/24 09:46 BMI result Body Mass Index 40.8 Const General: cooperative, healthy appearing, comfortable, no acute distress, well developed, alert, awake, Physically active and tired appearing; No acute distress, confusion, ill appearing or patient obtunded Nutritional Appearance: well nourished Orientation/consciousness: patient oriented x3, No confusion and No patient obtunded Limitations: no limitations HEENT Head: Yes normal to inspection and Yes normocephalic Ears: hearing grossly normal bilaterally, TM's normal bilaterally and EAC's normal General nose exam: Normal external nose present Face and sinus: Yes normal facial exam and Yes sinuses nontender Mouth: Normal oral and palatal mucosa present and moist mucous membranes Throat: Yes posterior oropharynx normal and No postnasal drainage Eyes General: appearance normal, both eyes and all related structures Visual Vigil: normal visual vigil by confrontation Alignment and Position: alignment normal Periorbital: periorbital findings normal Eyelids: Yes eyelids normal Conjunctivae: conjunctivae normal Sclerae: sclerae normal Corneas: corneas normal Pupils: Equal, round and reactive pupils present and Pupils normal by confrontation EOM: EOMs intact bilaterally Direct Ophthalmoscopy: normal light reflex and no photophobia Neck Lymphatic: no lymphadenopathy noted Cardio Rate: regular rate Rhythm: regular rhythm Skin General skin exam: no rashes or lesions noted Neuro General: patient oriented x3, no focal motor deficits, CN's II-XI intact bilaterally, No confusion and No patient obtunded Cranial nerves: Yes Equal, round and reactive pupils present Cognition (Neuro): normal cognition Psych Appearance: grossly normal Mental Status: mental status grossly normal Insight: Good insight present (Psych) Judgement: Good judgement present (Psych) Assessment & Plan Assessment & Plan (1) Acute headache: Comment: Patient is well-appearing, neurologically intact and in no acute distress. Patient will be prescribed Fioricet for management of her headaches and instructed to continue taking medications for treatment of her seasonal allergies. Code(s): R51.9 - Headache, unspecified Qualifiers: Headache type: unspecified Intractability: not intractable Qualified Code(s): R51.9 - Headache, unspecified Plan: Fioricet q6-8 hours prn headache, increase clear fluids daily, follow-up only as needed. Medications: New rnhudnbemn-hbsbyhtpjxavv-ylsb 50-300-40 mg (Fioricet) 1 cap PO Q6-8H PRN 10 caps 0RF pain Coding Level of Care Code Est Pt Level 3 (98084) Diagnoses Acute nonintractable headache, unspecified headache type R51.9 Headache type: unspecified Intractability: not intractable Time Spent (min) 20
== END 2024-10-26 10:11 | disposition home or self-care (01) ==
LOC: HO.HMCWIC 09:32
PROVIDERS: PCP Internal Medicine; Visit Provider Physician Assistant
DX: R51.9 Headache, unspecified (principal)